=== PATIENT | female | born 1970 | race Hispanic/Latino ===

== ENCOUNTER → 2018-10-31 | Outpatient (CLI) | payer OTHER | END | disposition home or self-care (01) | LOC: OIH 10:24 | PROVIDERS: ATTEND Family Medicine | DX: Z13.6 Encounter for screening for cardiovascular disorders (principal) | CPT/HCPCS: 75571 ==

== ENCOUNTER 2023-03-26 18:02 | Emergency (ER) | payer BC, OTHER ==
[~2023-03-26] VITALS: Ht 162.6 cm; Wt 69.9 kg
[2023-03-26 18:33] LABS: BASOPHILS # (AUTO) 0.02 K/uL (0.00-0.20); BASOPHILS % (AUTO) 0.1 % (0.0-5.0); EOSINOPHILS # (AUTO) 0.02 K/uL (0.00-0.70); EOSINOPHILS % (AUTO) 0.1 % (0.0-8.0); HEMATOCRIT 44.2 % (36-48); IMMATURE GRANULOCYTE ABSOLUTE 0.05 K/uL (0-1); LYMPHOCYTES # (AUTO) 1.1 K/uL (1.0-4.8); LYMPHOCYTES % (AUTO) 6.7 % (21.0-51.0); MEAN CORPUSCULAR HEMOGLOBIN 32.2 pg (27.0-33.0); MEAN CORPUSCULAR HGB CONC 34.4 g/dL (32.0-36.0); MEAN CORPUSCULAR VOLUME 93.6 fL (79-99); MONOCYTES # (AUTO) 0.4 K/uL (0.1-1.0); MONOCYTES % (AUTO) 2.2 % (3.0-13.0); NEUTROPHILS % (AUTO) 90.6 % (40.0-77.0); PLATELET COUNT (AUTO) 272 K/uL (130-400); RED BLOOD CELL COUNT(AUTO) 4.72 MIL/uL (4.00-5.50); RED CELL DISTRIBUTION WIDTH 12.3 % (11.0-15.5); WHITE BLOOD COUNT (AUTO) 16.6 K/uL (4.8-10.8)
[2023-03-26 18:43] LABS: CREATININE 0.8 mg/dL (0.5-1.5); POTASSIUM 3.8 mmol/L (3.5-5.1)
[2023-03-26 18:56] LABS: BILIRUBIN,TOTAL 1.1 mg/dL (0.2-1.0); TOTAL PROTEIN, SERUM 8.2 g/dL (6.0-8.3)
[2023-03-26] MEDS ORDERED: 0.9%NACL 1000ML 1,000 ML IV ONE (19:30)
[2023-03-26] MEDS ORDERED: IOHEXOL-350 75 ML VIAL IV ONE (20:02)
[2023-03-26] MEDS ORDERED: LIDOCAINE HCL 2% VISCOUS 15 ML UDCUP PO ONE ×2 (20:30→22:00)
[2023-03-26] MEDS ORDERED: FAMOTIDINE 20MG VIAL IV ONE (20:30)
[2023-03-26] MEDS ORDERED: DICYCLOMINE HCL 10 MG/5 ML ML PO ONE (20:30)
[2023-03-26] MEDS ORDERED: MAG/ALUM/SIMETH 30 ML UDCUP PO ONE ×2 (20:30→22:00)
[2023-03-26 20:37] LABS: APPEARANCE,URINE CLEAR (CLEAR); BILIRUBIN,URINE NEGATIVE (NEGATIVE); COLOR,URINE YELLOW (YELLOW); GLUCOSE, URINE (UA) NEGATIVE (NEGATIVE); KETONES,URINE 100 mg/dL (NEGATIVE); LEUKOCYTE ESTERASE ,URINE NEGATIVE Leu/uL (NEGATIVE); NITRATE,URINE NEGATIVE (NEGATIVE); OCCULT BLOOD,URINE MODERATE (NEGATIVE); PH,URINE 6.5 (5.0-8.0); PROTEIN,URINE 20 mg/dL (NEGATIVE); UROBILINOGEN,URINE 0.2 mg/dL (0.2-1.0)
[2023-03-26 20:39] LABS: ADD UA MICROSCOPIC YES
[2023-03-26 20:54] LABS: BACTERIA,URINE FEW /HPF (None Seen); MUCUS,URINE MOD LPF (None Seen); RBC,URINE 26-50 /HPF (0-1); SQUAMOUS EPITHELIAL CELL,UR FEW /HPF (0-2)
[2023-03-26] MEDS ORDERED: DICY20TA2 PO (21:58)
[2023-03-26] MEDS ORDERED: PANT40TA54 PO (21:58)
[2023-03-26] MEDS ORDERED: PANTOPRAZOLE 40 MG/VIAL IVP ONE (22:00)
[2023-03-26 22:10] VITALS: BP 110/69; PULSE 71; RESP 16; O2SAT 98
== END 2023-03-26 22:23 | disposition home or self-care (01) ==
LOC: EDH 18:02
DX: K29.70 Gastritis, unspecified, without bleeding (principal); N83.209 Unspecified ovarian cyst, unspecified side; Z98.890 Other specified postprocedural states; Z88.8 Allergy status to other drugs, medicaments and biological substances
CPT/HCPCS: 99284; 74177; 96374; 71045; 96361; 96375; 82550; 83874; 84484; 80053; 83690; 85025; 81001; 36415; 93005; J3490; J7030; C9113; Q9967